=== PATIENT | male | born 1955 | race Caucasian/White ===

== ENCOUNTER 2017-06-28 06:06 | Emergency (ER) | payer OTHER ==
[2017-06-28] MEDS ORDERED: Ketorolac INJ* 60 MG/2 ML VIAL IM ONE (07:35)
[2017-06-28] MEDS ORDERED: oxyCODONE/Acetamin 5/325 MG* TAB PO ONE (07:35)
[2017-06-28 08:17] VITALS: BP 148/72
--- NOTE | 2017-06-28 08:25 | RAD ---
HISTORY: Left knee pain COMPARISONS: None VIEWS: 5, Frontal, lateral, axial, and oblique views of the left knee FINDINGS: BONE DENSITY: Normal. BONES: There is no displaced fracture. JOINTS: There is moderate to advanced tricompartmental osteoarthritis. There is chondrocalcinosis. ALIGNMENT: There is no dislocation. SOFT TISSUES: Unremarkable. OTHER FINDINGS: None. IMPRESSION: OSTEOARTHRITIS. NO ACUTE OSSEOUS INJURY. IF SYMPTOMS PERSIST, RECOMMEND REPEAT IMAGING.
--- NOTE | 2017-06-28 17:59 | ED ---
Cholo Way Alfonso, scribed for Karthik Key MD on 06/28/17 at 0719 . Lower Extremity - HPI Summary HPI Summary: This patient is a 62 year old M presenting to [facility] with a chief complaint of left knee pain since two days ago. The patient rates the aching pain 5/10 in severity. Symptoms aggravated by ambulating and alleviated by a heating pad. Patient reports insomnia secondary to pain. He denies a recent knee injury. He reports a left knee injury approximately 10 years ago. PHSx of spinal stenosis/ refuse surgery. He denies a PMHx of renal failure. PMHx of DM, HLD, HTN, sleep apnea (CPAP user), herniated discs spinal stenosis, chronic hip pain, anxiety, and depression. - History of Current Complaint Chief Complaint: EDExtremityLower Stated Complaint: LT KNEE PAIN Hx Obtained From: Patient Onset of Pain: Prior to Arrival Onset/Duration: Still Present - 2 Severity Initially: Moderate Severity Currently: Moderate Pain Intensity: 5 Pain Scale Used: 0-10 Numeric Timing: Constant Location: Is Discrete @ - Left knee Character Of Pain: Aching Associated Signs And Symptoms: Positive: Other - Insomnia secondary to pain Aggravating Factor(s): Ambulation Alleviating Factor(s): Other - Heating pad - Allergies/Home Medications Allergies/Adverse Reactions: Allergies Allergy/AdvReac Type Severity Reaction Status Date / Time No Known Allergies Allergy Verified 10/07/15 13:47 PMH/Surg Hx/FS Hx/Imm Hx Endocrine/Hematology History: Reports: Hx Diabetes Cardiovascular History: Reports: Hx Hypercholesterolemia, Hx Hypertension Denies: Hx Pacemaker/ICD Respiratory History: Reports: Hx Sleep Apnea - current CPAP user. GI History: Reports: Other GI Disorders - colon polyps History: Reports: Hx Benign Prostatic Hyperplasia, Other Problems/ Disorders - Solitary Right Kidney; Hypercalcemia; Nephrectomy (left) Musculoskeletal History: Reports: Hx Back Problems - spinal stenosis/refuse surgery; Herniated Discs spinal stenosis, Other Musculoskeletal History - chronic hip pain Sensory History: Reports: Hx Contacts or Glasses Denies: Hx Hearing Aid Opthamlomology History: Reports: Hx Contacts or Glasses Neurological History: Reports: Hx Headaches Denies: Hx Migraine Psychiatric History: Reports: Hx Anxiety, Hx Depression Denies: Hx Panic Disorder - Surgical History Surgery Procedure, Year, and Place: (left) nephrectomy -malformed, UNDECENDED TESTICLE, tonsils, "heart blockage but I couldn't get a stent because my artery was too small" Infectious Disease History: No Infectious Disease History: Denies: Hx Tuberculosis, Traveled Outside the [place] in Last 30 Days - Family History Known Family History: Positive: Cardiac Disease, Hypertension - Social History Alcohol Use: Occasionally Substance Use Type: Reports: None Smoking Status (MU): Never Smoked Tobacco Review of Systems Negative: Fever Positive: Other - Positive left knee pain Neurological: Other - Positive insomnia secondary to pain All Other Systems Reviewed And Are Negative: Yes Physical Exam - Summary Physical Exam Summary: VITAL SIGNS: Reviewed. GENERAL: Patient is a well-developed and obese male who is lying comfortable in the stretcher. Patient is not in any acute respiratory distress. HEAD AND FACE: No signs of trauma. No ecchymosis, hematomas or skull depressions. No sinus tenderness. EYES: PERRLA, EOMI x 2, No injected conjunctiva, no nystagmus. EARS: Hearing grossly intact. Ear canals and tympanic membranes are within normal limits. MOUTH: Oropharynx within normal limits. NECK: Supple, trachea is midline, no adenopathy, no JVD, no carotid bruit, no c- spine tenderness, neck with full ROM. CHEST: Symmetric, no tenderness at palpation LUNGS: Clear to auscultation bilaterally. No wheezing or crackles. CVS: Regular rate and rhythm, S1 and S2 present, no murmurs or gallops appreciated. ABDOMEN: Soft, non-tender. No signs of distention. No rebound no guarding, and no masses palpated. Bowel sounds are normal. EXTREMITIES: Good pulses in bilateral LE. No swelling. No deformity. Decrease ROM in LLE secondary to pain. Anterior draw test is negative. NEURO: Alert and oriented x 3. No acute neurological deficits. Speech is normal and follows commands. SKIN: Dry and warm Triage Information Reviewed: Yes Vital Signs On Initial Exam: Initial Vitals Temp Pulse Resp BP Pulse Ox 96.9 F 87 20 158/81 95 06/28/17 06:09 06/28/17 06:09 06/28/17 06:09 06/28/17 06:06/28/17 06:09 Vital Signs Reviewed: Yes - Kristopher Coma Scale Coma Scale Total: 15 Diagnostics - Vital Signs Vital Signs Temp Pulse Resp BP Pulse Ox 06/28/17 06:09 96.9 F 87 20 158/81 95 - Laboratory Lab Statement: Any lab studies that have been ordered have been reviewed, and results considered in the medical decision making process. - Radiology Knee X-Ray Radiology Interpretation Completed By: ED Physician - Knee X-ray reveals there is no fracture or dislocation. Knee X-ray reveals positive osteoarthritis., Radiologist - OSTEOARTHRITIS. NO ACUTE OSSEOUS INJURY. IF SYMPTOMS PERSIST, RECOMMEND REPEAT IMAGING. Lower Extremity Course/Dx - Course Course Of Treatment: This patient is a 62 year old M presenting to [facility] with a chief complaint of left knee pain since two days ago. The patient rates the aching pain 5/10 in severity. Symptoms aggravated by ambulating and alleviated by a heating pad. Patient reports insomnia secondary to pain. He denies a recent knee injury. He reports a left knee injury approximately 10 years ago. PHSx of spinal stenosis/refuse surgery. He denies a PMHx of renal failure. PMHx of DM, HLD, HTN, sleep apnea (CPAP user), herniated discs spinal stenosis, chronic hip pain, anxiety, and depression. Assessment/Plan: This patient is a 62 year old male with left knee pain. Knee X- ray reveals there is no fracture or dislocation. Knee X-ray reveals positive osteoarthritis. In the ED course the patient was given Toradol and Percocet. He will be discharged home with orthopedic follow up. He declines a knee immobilizer. He states that he will not be driving home from the ED. He was given pain medication and anti-inflammatory medication for home. He was informed to return to the ED if his symptoms worsen. Patient understands and agrees. The patient is hemodynamically stable and alert and oriented to person, place, and time. I discussed all the findings and test results with the patient. Patient was instructed to return to the emergency room immediately if any of the symptoms return or worsens. Plan of care was discussed with the patient and understands and agrees. All questions were answered at patient satisfaction. There were no further complaints or concerns. Lung exam before discharge: CTA B/L. Good air exchange. No wheezing or crackles heard. CVS: S1 and S2 present. No murmurs appreciated. Patient is alert and oriented x 3. Patient is hemodynamically stable. Patient will be discharged home with follow up PCP in the next 2-3 days - Diagnoses Provider Diagnoses: Osteoarthritis of left knee Discharge - Discharge Plan Condition: Stable Disposition: HOME Prescriptions: Oxycodone/ASA 5/325 (NF) [Percodan 5/325 (NF)] 1 tab PO Q6H PRN #12 tab MDD 4 PRN Reason: Pain oxyCODONE/Acetamin 5/325 MG* [Percocet 5/325 TAB*] 1 tab PO Q6H PRN #12 tab MDD 4 PRN Reason: Pain Patient Education Materials: Osteoarthritis (ED) Referrals: Thomas Fraire MD [Medical Doctor] - 3 Days The documentation as recorded by the Cholo gaitan Alfonso accurately reflects the service I personally performed and the decisions made by Shahid bacon Walter, MD.
== END 2017-06-28 07:51 | disposition home or self-care (01) ==
LOC: ED 06:06
DX: M17.12 Unilateral primary osteoarthritis, left knee (principal); M25.562 Pain in left knee
CPT/HCPCS: 99282; A9270-GY; J1885

== ENCOUNTER 2017-10-13 12:48 | Emergency (ER) | payer OTHER ==
--- NOTE | 2017-10-13 14:06 | ED ---
Throat Pain/Nasal Congestion - HPI Summary HPI Summary: 62 male presents to ED with complaints of right ear pain and loss of hearing that began 1 week ago. Patient states he feels like it is plugged. Concerned for swimmers ear. Denies fever/chills or drainage from the ear. Also states he began having a slight scratchy throat and upper tooth pain beginning yesterday. Patient denies difficulty swallowing, difficulty breathing and headache. States is able to hear some out of right ear but feels plugged and is muffled. No other complaints. No medications. PMHx significant for HTN and DM. - History of Current Complaint Chief Complaint: EDEarPain Time Seen by Provider: 10/13/17 13:06 Hx Obtained From: Patient Onset/Duration: Sudden Onset, Lasting Weeks - 1, Still Present, Worse Since Severity: Moderate Cough: None - Allergies/Home Medications Allergies/Adverse Reactions: Allergies Allergy/AdvReac Type Severity Reaction Status Date / Time No Known Allergies Allergy Verified 10/07/15 13:47 PMH/Surg Hx/FS Hx/Imm Hx Endocrine/Hematology History: Reports: Hx Diabetes Cardiovascular History: Reports: Hx Hypercholesterolemia, Hx Hypertension Denies: Hx Pacemaker/ICD Respiratory History: Reports: Hx Sleep Apnea - current CPAP user. GI History: Reports: Other GI Disorders - colon polyps History: Reports: Hx Benign Prostatic Hyperplasia, Other Problems/ Disorders - Solitary Right Kidney; Hypercalcemia; Nephrectomy (left) Musculoskeletal History: Reports: Hx Back Problems - spinal stenosis/refuse surgery; Herniated Discs spinal stenosis, Other Musculoskeletal History - chronic hip pain Sensory History: Reports: Hx Contacts or Glasses Denies: Hx Hearing Aid Opthamlomology History: Reports: Hx Contacts or Glasses Neurological History: Reports: Hx Headaches Denies: Hx Migraine Psychiatric History: Reports: Hx Anxiety, Hx Depression Denies: Hx Panic Disorder - Surgical History Surgery Procedure, Year, and Place: (left) nephrectomy -malformed, UNDECENDED TESTICLE, tonsils, "heart blockage but I couldn't get a stent because my artery was too small" - Immunization History Immunizations Up to Date: Yes Infectious Disease History: No Infectious Disease History: Denies: Hx Tuberculosis, Traveled Outside the [place] in Last 30 Days - Family History Known Family History: Positive: Cardiac Disease, Hypertension - Social History Alcohol Use: Rare Substance Use Type: Reports: None Smoking Status (MU): Never Smoked Tobacco Type: Cigarettes Review of Systems Constitutional: Negative Positive: Dental Pain, Sore Throat, Ear Ache Cardiovascular: Negative Respiratory: Negative Musculoskeletal: Negative Neurological: Negative All Other Systems Reviewed And Are Negative: Yes Physical Exam Triage Information Reviewed: Yes Vital Signs On Initial Exam: Initial Vitals Temp Pulse Resp BP Pulse Ox 97.4 F 71 16 153/83 96 10/13/17 12:51 10/13/17 12:51 10/13/17 12:51 10/13/17 12:51 10/13/17 12:51 Vital Signs Reviewed: Yes Appearance: Positive: Well-Appearing, No Pain Distress, Well-Nourished Skin: Positive: Warm, Skin Color Reflects Adequate Perfusion, Dry. Negative: Cold, Diaphoretic, Erythema @ Head/Face: Positive: Normal Head/Face Inspection Eyes: Positive: Conjunctiva Clear ENT: Positive: Hearing grossly normal - some decreased hearing of right side, failed whisper test, Pharynx normal, TMs normal - left side, unable to view right TM due to occluding cerumen impaction in right EAC. attempted irrgation, Uvula midline, Other - no mastoid tenderness. Negative: Tonsillar swelling, Tonsillar exudate Neck: Positive: Supple, Nontender, No Lymphadenopathy Respiratory/Lung Sounds: Positive: Clear to Auscultation, Breath Sounds Present. Negative: Rales, Rhonchi, Wheezes Cardiovascular: Positive: Normal, RRR, Pulses are Symmetrical in both Upper and Lower Extremities. Negative: Murmur, Rub Musculoskeletal: Positive: Normal, Strength/ROM Intact Neurological: Positive: Normal, Sensory/Motor Intact, Alert, Oriented to Person Place, Time, Normal Gait - Kristopher Coma Scale Coma Scale Total: 15 Diagnostics - Vital Signs Vital Signs Temp Pulse Resp BP Pulse Ox 10/13/17 12:51 97.4 F 71 16 153/83 96 - Laboratory Lab Statement: Any lab studies that have been ordered have been reviewed, and results considered in the medical decision making process. Re-Evaluation - Re-Evaluation First Eval Re-Evaluation Time: 14:30 Change: Improved - some relief after irrigation, however not complete and still unable to visualize TM EENT Course/Dx - Course Course Of Treatment: right ear irrigated with some relief, some improvement of hearing. however most of cerumen still in canal, unable to visualize TM. will give debrox to soften and remove wax. instructed after use he may need irrigated again by PCP. cprodex also give for infection purposes. instructed on use and patient agrees/understands. no dental abscess noted on exam, however due to complaints encouraged good oral hygeine, fluids, ibuprofen/tylenol, orajel and use of amoxicillin only if symptoms worse by monday. Aware of worsening signs and symptoms. No other concerns at this time. Follow up PCP. all questions answered. - Differential Diagnoses Differential Diagnoses: Cerumen Impaction, Otitis Externa, Otitis Media - Diagnoses Provider Diagnoses: Impacted cerumen, right ear, Otitis externa, Toothache Discharge - Discharge Plan Condition: Stable Disposition: HOME Prescriptions: Amoxicillin PO (*) [Amoxicillin 500 MG CAP*] 500 mg PO Q12H #20 cap Patient Education Materials: Otitis Externa (ED), Cerumen Impaction (ED), Toothache (ED) Referrals: Cecy Jackson MD [Primary Care Provider] - Additional Instructions: Use prescribed drops as directed for infection and cerumen impaction. Wax (debrox) drops first lay on opposite side for 5 minutes. Then hour after use antibiotic drops and lay on opposite side for 5 minutes. Do not stick anything into ears. Do not submerge ears under water. Ibuprofen/tylenol for pain and inflammation. Gently let hot showers/water run in right ear. As discussed. Any new or worsening symptoms please seek medical attention promptly, as discussed. Oral antibiotics if tooth pain worsens by Monday. If not, do not use. Try oragel , good oral hygiene and salt water swishes. Follow up with PCP and dentist.
[2017-10-13] MEDS ORDERED: Carbamide Peroxide 6.5% OTIC* 15 ML BTL RIGHT EAR ONE (15:04)
[2017-10-13] MEDS ORDERED: Amoxicillin PO (*) 500 MG CAP PO ONE (15:07)
[2017-10-13 15:54] VITALS: BP 143/76
[2017-10-13] MEDS ORDERED: Ciproflox/Dexameth OTIC.SUSP* 7.5 ML BTL RIGHT EAR SCH (21:00)
== END 2017-10-13 15:46 | disposition home or self-care (01) ==
LOC: ED 12:48
DX: H61.21 Impacted cerumen, right ear (principal); H60.91 Unspecified otitis externa, right ear; K08.89 Other specified disorders of teeth and supporting structures; F41.9 Anxiety disorder, unspecified; F32.9 Major depressive disorder, single episode, unspecified
CPT/HCPCS: 99282; A9270-GY